=== PATIENT | female | born 1985 | race Caucasian/White ===

== ENCOUNTER 2017-02-22 08:37 | Emergency (ER) | payer OTHER ==
[~2017-02-22] VITALS: Ht 167.6 cm; Wt 49.9 kg
[~2017-02-22 08:37] MED LIST: FOLIC ACID1 MG PO; KETO10TA2 PO; MOTRIN800 MG PO; ORPH100T PO; TAMS0.4C PO
[2017-02-22] MEDS ORDERED: PROBIOTIC1 EAC1 (08:52)
[2017-02-22] MEDS ORDERED: MAGNESIUM400 M1 (08:53)
[2017-02-22] MEDS ORDERED: DICLOFENAC SODI50 MG PO (13:32)
== END 2017-02-22 14:36 | disposition home or self-care (01) ==
LOC: ER 08:37
DX: N20.0 Calculus of kidney (principal); R10.32 Left lower quadrant pain

== ENCOUNTER 2019-02-08 08:19 | Emergency (ER) | payer OTHER ==
[~2019-02-08] VITALS: Ht 167.6 cm; Wt 49.0 kg
[~2019-02-08 08:19] MED LIST changes: +DICLOFENAC SODI50 MG PO; +MAGNESIUM400 M1; +PROBIOTIC1 EAC1
== END 2019-02-08 14:48 | disposition home or self-care (01) ==
LOC: ER 08:19
DX: M62.838 Other muscle spasm (principal); N20.0 Calculus of kidney; N83.292 Other ovarian cyst, left side

== ENCOUNTER 2019-05-19 13:02 | Emergency (ER) | payer OTHER ==
[~2019-05-19] VITALS: Ht 167.6 cm; Wt 49.9 kg
== END 2019-05-19 16:43 | disposition home or self-care (01) ==
LOC: ER 13:02
DX: N13.2 Hydronephrosis with renal and ureteral calculous obstruction (principal)